=== PATIENT | male | born 1970 | race Two or more races ===

== ENCOUNTER 2021-09-05 08:00 | Emergency (ER) | payer OTHER ==
[~2021-09-05] VITALS: Ht 165.1 cm; Wt 80.9 kg
[2021-09-05] MEDS ORDERED: PREDNISONE 20 MG TAB PO ONE (09:00)
[2021-09-05] MEDS ORDERED: PREDNISONE 20 MG TAB ONE (09:18)
[2021-09-05] MEDS ORDERED: PREDNISONE50 MG PO (09:29)
[2021-09-05] MEDS ORDERED: CYCLOBENZAPRINE10 MG PO (09:30)
[2021-09-05] MEDS ORDERED: NAPROSYN500 MG PO (09:31)
== END 2021-09-05 10:00 | disposition home or self-care (01) ==
LOC: FSED 08:48
DX: M54.50 Low back pain, unspecified (principal); M79.641 Pain in right hand; R20.0 Anesthesia of skin; F17.210 Nicotine dependence, cigarettes, uncomplicated
CPT/HCPCS: 72110; 81003; 99283; J7512